=== PATIENT | female | born 1955 | race Hispanic/Latino ===

== ENCOUNTER 2025-08-04 20:58 | Emergency (ER) | payer MEDICARE ==
[~2025-08-04] VITALS: Ht 154.9 cm; Wt 63.5 kg
[2025-08-04 21:27] VITALS: TEMP 98.8
[2025-08-04] MEDS ORDERED: SODIUM CHLORIDE 0.9% 1000ML 1,000 ML IV ONE (21:45)
[2025-08-04] MEDS: SODIUM CHLORIDE 0.9% 1000ML 1,000 ML IV ONE (22:21)
[2025-08-04] MEDS: ONDANSETRON HCL INJ 2MG/ML 2ML 2 MG/ML VIAL IV STA (22:21)
[2025-08-04] MEDS ORDERED: IOPAMIDOL 370 MG/ML 100 ML INFUS..BTL INJ ONE (22:22)
[2025-08-04] MEDS ORDERED: ONDANSETRON ODT4 MG PO (23:42)
[2025-08-04 23:48] VITALS: PULSE 90; RESP 18
[2025-08-05 00:10] VITALS: BP 128/73; PULSE 90; RESP 18; TEMP 98.6; O2SAT 96
== END 2025-08-05 00:10 | disposition home or self-care (01) ==
LOC: FSED 21:45
DX: R10.13 Epigastric pain (principal); R11.0 Nausea; R14.2 Eructation; K52.9 Noninfective gastroenteritis and colitis, unspecified
CPT/HCPCS: 74177; 80048; 80076; 85025; 96374; 99283; J2405; J7030; Q9967